=== PATIENT | female | born 1940 | race Caucasian/White ===

== ENCOUNTER 2020-11-08 21:14 | Emergency (ER) | payer OTHER ==
[~2020-11-08] VITALS: Ht 160 cm; Wt 59.0 kg
[~2020-11-08 21:14] MED LIST: DAFLONEX 600 MG1 TAB; ETODOLAC600 MG; FLONASE16 GM NS; MOTRIN600 MG PO; NABUMETONE500 MG PO; NORFLEX100 MG; PERCOCET 5/3251 TAB PO; SYNTHROID75 MCG PO; SYNTHROID88 MCG PO; ZYRTEC10 M3 PO
[2020-11-09] MEDS ORDERED: IBU800 MG PO (16:47)
== END 2020-11-09 17:45 | disposition home or self-care (01) ==
LOC: ER 21:14
DX: I70.292 Other atherosclerosis of native arteries of extremities, left leg (principal); M79.605 Pain in left leg; M54.31 Sciatica, right side; M54.5 Low back pain